=== PATIENT | male | born 1980 | race Caucasian/White ===

== ENCOUNTER 2018-01-31 17:58 | Emergency (ER) | payer OTHER ==
[~2018-01-31] VITALS: Ht 167.6 cm; Wt 90.7 kg
[~2018-01-31 17:58] MED LIST: ACETAMINOPHEN-1 EAC1 PO; AMOXICILLIN 50500 MG PO; CEPHALEXIN 500500 M3 PO; HYDROCODONE-AP1 EAC6 PO; IBUPROFEN 800800 M1 PO; NORCO 5-325 TA1 EAC1 PO; PENICILLIN VK250 MG PO; ZOFRAN ODT4 MG PO
[2018-01-31] MEDS ORDERED: TYLENOL325 M1 PO (18:07)
[2018-01-31 18:53] VITALS: BP 140/94
== END 2018-01-31 18:54 | disposition home or self-care (01) ==
LOC: M.ERS 17:58
DX: S86.891A Other injury of other muscle(s) and tendon(s) at lower leg level, right leg, initial encounter (principal); S86.892A Other injury of other muscle(s) and tendon(s) at lower leg level, left leg, initial encounter; J02.8 Acute pharyngitis due to other specified organisms; B97.89 Other viral agents as the cause of diseases classified elsewhere; Z88.8 Allergy status to other drugs, medicaments and biological substances; X58.XXXA Exposure to other specified factors, initial encounter; Y93.89 Activity, other specified; Y92.89 Other specified places as the place of occurrence of the external cause; Y99.8 Other external cause status

== ENCOUNTER 2021-11-14 12:27 | Emergency (ER) | payer OTHER ==
[~2021-11-14] VITALS: Ht 170.2 cm; Wt 95.3 kg
[~2021-11-14 12:27] MED LIST changes: +TYLENOL325 M1 PO
[2021-11-14] MEDS ORDERED: HYDROCODON-ACE1 EAC7 PO (15:15)
[2021-11-14] MEDS ORDERED: FLEXERIL PO (15:22)
[2021-11-14 15:36] VITALS: BP 150/92
== END 2021-11-14 15:38 | disposition home or self-care (01) ==
LOC: M.ERS 12:27
DX: M62.838 Other muscle spasm (principal); G93.5 Compression of brain; Z98.890 Other specified postprocedural states; Z88.8 Allergy status to other drugs, medicaments and biological substances